=== PATIENT | female | born 1995 | race Two or more races ===

== ENCOUNTER 2024-01-22 10:58 | Emergency (ER) | payer MEDICAID, OTHER ==
[~2024-01-22] VITALS: Ht 160 cm; Wt 77.8 kg
[2024-01-22 12:45] VITALS: BP 125/72; PULSE 79; RESP 16; TEMP 97.8; O2SAT 100
[2024-01-22] MEDS ORDERED: ERY05OO OP (12:57)
[2024-01-22] MEDS ORDERED: CIPR0.3S67 OP (13:03)
== END 2024-01-22 13:10 | disposition home or self-care (01) ==
LOC: ER 10:58
DX: H10.89 Other conjunctivitis (principal); Z88.1 Allergy status to other antibiotic agents